=== PATIENT | female | born 1965 | race Caucasian/White ===

== ENCOUNTER 2023-06-29 05:17 | Emergency (ER) | payer BC ==
[2023-06-29] MEDS: oxyCODONE 5 MG Tab PO ONE (06:17)
[2023-06-29] MEDS: Ketorolac 15 MG/ML SDV IVPUSH ONE (06:18)
[2023-06-29] MEDS: Dexamethasone 4 MG/ML SDV IVPUSH ONE (07:32)
== END 2023-06-29 08:20 | disposition home or self-care (01) ==
LOC: VM.ED 05:17
DX: M62.830 Muscle spasm of back (principal); F17.210 Nicotine dependence, cigarettes, uncomplicated; Z79.899 Other long term (current) drug therapy
CPT/HCPCS: 96374; 96375; 96376; 99283; 99283-25; A9270-GY; J1100; J1885; J3360